=== PATIENT | female | born 1970 | race Caucasian/White ===

== ENCOUNTER → 2016-07-22 | Outpatient (REF) | payer OTHER | LOC: M SFHCLERA 15:26 | PROVIDERS: ATTEND Physician Assistant | DX: R50.9 Fever, unspecified (principal) ==

== ENCOUNTER → 2017-02-26 | Outpatient (REF) | payer OTHER | LOC: M SFHCLERA 15:09 | PROVIDERS: ATTEND Physician Assistant | DX: N30.01 Acute cystitis with hematuria (principal) ==

== ENCOUNTER → 2017-07-30 | Outpatient (CLI) | payer OTHER ==
[2017-07-30 19:01] LABS: ALBUMIN 3.8 GM/DL (3.2-5.2); ALBUMIN/GLOBULIN RATIO 1.12 (1.00-1.93); ALKALINE PHOSPHATASE 80 U/L (45-117); ALT/SGPT 17 U/L (12-78); ANION GAP 8 MEQ/L (8-16); AST/SGOT 14 U/L (7-37); BILIRUBIN,TOTAL 0.3 MG/DL (0.2-1.0); BLOOD UREA NITROGEN 10 MG/DL (7-18); CALCIUM LEVEL 8.4 MG/DL (8.5-10.1); CARBON DIOXIDE LEVEL 25 MEQ/L (21-32); CHLORIDE LEVEL 107 MEQ/L (98-107); CHOLESTEROL LEVEL 165 MG/DL (<200); CHOLESTEROL RISK RATIO 3.113 (<5); CREATININE FOR GFR 0.71 MG/DL (0.55-1.02); GLOMERULAR FILTRATION RATE > 60.0 (>58); GLUCOSE, FASTING 93 MG/DL (70-105); HDL CHOLESTEROL 53 MG/DL (>40); LDL CHOLESTEROL 89.2 MG/DL (<100); NON-HDL-C 112 MG/DL; POTASSIUM SERUM 4.3 MEQ/L (3.5-5.1); SODIUM LEVEL 140 MEQ/L (136-145); TOTAL PROTEIN 7.2 GM/DL (6.4-8.2); TRIGLYCERIDES LEVEL 114 MG/DL (<150)
[2017-08-03 00:06] LABS: Lyme Disease IgG/IgM Antibodie <0.91 ISR (0.00-0.90); Lyme Disease IgM Ab Quantitati <0.80 index (0.00-0.79)
== END ==
LOC: M WUC 08:20
DX: Z00.00 Encounter for general adult medical examination without abnormal findings (principal); Z13.220 Encounter for screening for lipoid disorders; S80.862A Insect bite (nonvenomous), left lower leg, initial encounter; X58.XXXA Exposure to other specified factors, initial encounter; Y92.9 Unspecified place or not applicable; Y93.9 Activity, unspecified

== ENCOUNTER 2017-11-22 14:33 | Emergency (ER) | payer OTHER ==
[2017-11-22 15:29] LABS: BASO % 0.4 % (0.0-1.0); EOS % 0.4 % (0.0-3.0); HEMATOCRIT 42.7 % (36.0-47.0); HEMOGLOBIN 14.1 g/dl (12.0-15.5); IMMATURE GRANULOCYTE % 0.3 % (0-3.0); LYMPH # 2.1 10^3/uL (1.5-4.5); LYMPH % 22.2 % (24.0-44.0); MEAN CORPUSCULAR HEMOGLOBIN 29.6 pg (27.0-33.0); MEAN CORPUSCULAR VOLUME 89.5 fl (80.0-96.0); MONO # 0.4 10^3/uL (0.0-0.8); MONO % 4.2 % (0.0-5.0); NEUTROPHILS # 6.8 10^3/uL (1.8-7.7); NEUTROPHILS % 72.5 % (36.0-66.0); PLATELET COUNT, AUTOMATED 328 10^3/uL (150-450); RED BLOOD COUNT 4.77 10^6/uL (4.00-5.40); WHITE BLOOD COUNT 9.5 10^3/uL (4.0-10.0)
[2017-11-22] MEDS: LORazepam 2 MG/ML VIAL (J2060) IV (15:36)
[2017-11-22] MEDS: NS 1,000 ML IV (15:37)
[2017-11-22 15:40] LABS: INR 0.89; PROTHROMBIN TIME 12.1 SECONDS (12.4-14.5)
[2017-11-22 15:41] LABS: PARTIAL THROMBOPLASTIN TIME 28.3 SECONDS (26.8-37.9)
[2017-11-22 15:44] LABS: CONTROL LINE HCG INT CTR LINE PRESENT; HCG, SERUM QUALITATIVE NEGATIVE (NEGATIVE)
[2017-11-22 15:53] LABS: ANION GAP 4 MEQ/L (8-16); BLOOD UREA NITROGEN 7 MG/DL (7-18); CALCIUM LEVEL 8.7 MG/DL (8.5-10.1); CARBON DIOXIDE LEVEL 28 MEQ/L (21-32); CHLORIDE LEVEL 109 MEQ/L (98-107); CPK CREATINE PHOSPHOKINASE 69 U/L (26-192); CREATININE FOR GFR 0.74 MG/DL (0.55-1.30); FREE T4 1.18 NG/DL (0.76-1.46); GLOMERULAR FILTRATION RATE > 60.0 (>58); GLUCOSE, FASTING 86 MG/DL (70-100); POTASSIUM SERUM 3.7 MEQ/L (3.5-5.1); SODIUM LEVEL 141 MEQ/L (136-145); TROPONIN I < 0.02 NG/ML (< 0.10)
[2017-11-22 15:57] LABS: D-DIMER QUANT < 270.0 ng/ml (<500)
[2017-11-22 15:59] LABS: CK-MB VALUE MASS < 1.0 NG/ML (<3.6); MB/CK RELATIVE INDEX 1.44 (< OR =4); NT-PRO BNP 315 PG/ML (<125)
[2017-11-22] MEDS ORDERED: ISOVUE-370 76% 100ML VIAL (Q9967) As Ordered (16:44)
[2017-11-22 20:05] LABS: ALBUMIN 3.2 GM/DL (3.2-5.2); ALBUMIN/GLOBULIN RATIO 1.07 (1.00-1.93); ALKALINE PHOSPHATASE 64 U/L (45-117); ALT/SGPT 19 U/L (12-78); AST/SGOT 14 U/L (7-37); BILIRUBIN,DIRECT 0.1 MG/DL (0.0-0.2); BILIRUBIN,TOTAL 0.4 MG/DL (0.2-1.0); CPK CREATINE PHOSPHOKINASE 56 U/L (26-192); TOTAL PROTEIN 6.2 GM/DL (6.4-8.2); TROPONIN I < 0.02 NG/ML (< 0.10)
[2017-11-22 20:06] LABS: CK-MB VALUE MASS < 1.0 NG/ML (<3.6); MB/CK RELATIVE INDEX 1.78 (< OR =4)
== END 2017-11-22 21:07 | disposition home or self-care (01) ==
LOC: M ED 14:33
DX: R07.89 Other chest pain (principal); K76.89 Other specified diseases of liver; R94.31 Abnormal electrocardiogram [ECG] [EKG]; Z79.3 Long term (current) use of hormonal contraceptives; Z86.59 Personal history of other mental and behavioral disorders
CPT/HCPCS: Q9967

== ENCOUNTER 2018-10-06 06:52 | Emergency (ER) | payer OTHER ==
[~2018-10-06] VITALS: Ht 167.6 cm; Wt 5.0 kg
[~2018-10-06 06:52] MED LIST: LEVOTAB18 PO; SERT-155 PO
[2018-10-06] MEDS ORDERED: BUPR1TAB53 PO (07:03)
[2018-10-06] MEDS: NS 1,000 ML IV ONE (07:33)
[2018-10-06 07:35] LABS: BASO % 0.4 % (0.0-1.0); EOS # 0.1 10^3/uL (0.0-0.50); EOS % 0.9 % (0.0-3.0); HEMATOCRIT 42.4 % (36.0-47.0); HEMOGLOBIN 13.8 g/dl (12.0-15.5); LYMPH # 1.4 10^3/uL (1.5-4.5); LYMPH % 14.6 % (24.0-44.0); MEAN CORPUSCULAR HEMOGLOBIN 28.8 pg (27.0-33.0); MEAN CORPUSCULAR HGB CONC 32.5 g/dl (32.0-36.5); MEAN CORPUSCULAR VOLUME 88.5 fl (80.0-96.0); MONO # 0.6 10^3/uL (0.0-0.8); NEUTROPHILS # 7.6 10^3/uL (1.8-7.7); NEUTROPHILS % 77.5 % (36.0-66.0); PLATELET COUNT, AUTOMATED 331 10^3/uL (150-450); RED BLOOD COUNT 4.79 10^6/uL (4.00-5.40); WHITE BLOOD COUNT 9.8 10^3/uL (4.0-10.0)
--- NOTE | 2018-10-06 07:48 | REP ---
Portable chest x-ray: Single view. History: Chest pain. Comparison study: November 22, 2017. Findings: EKG monitoring electrodes overlie the chest. The lungs are well inflated and clear. Heart is not enlarged. Pulmonary vasculature is not increased. No significant bony abnormality is seen. Impression: Negative portable chest x-ray. Electronically Signed by Power Caldera MD 10/06/2018 07:39 A
[2018-10-06] MEDS: ACETAMINOPHEN 500 MG TAB PO ONE (07:50)
[2018-10-06 07:58] LABS: ALBUMIN 3.7 GM/DL (3.2-5.2); ALT/SGPT 18 U/L (12-78); BILIRUBIN,DIRECT 0.1 MG/DL (0.0-0.2); BILIRUBIN,TOTAL 0.5 MG/DL (0.2-1.0); BLOOD UREA NITROGEN 6 MG/DL (7-18); CALCIUM LEVEL 8.6 MG/DL (8.5-10.1); CARBON DIOXIDE LEVEL 23 MEQ/L (21-32); CHLORIDE LEVEL 108 MEQ/L (98-107); CK-MB VALUE MASS < 1.0 NG/ML (<3.6); CPK CREATINE PHOSPHOKINASE 49 U/L (26-192); CREATININE FOR GFR 0.83 MG/DL (0.55-1.30); GLOMERULAR FILTRATION RATE > 60.0 (>58); GLUCOSE, FASTING 84 MG/DL (70-100); MB/CK RELATIVE INDEX 2.04 (< OR =4); NT-PRO BNP 123 PG/ML (<125); POTASSIUM SERUM 3.9 MEQ/L (3.5-5.1); SODIUM LEVEL 141 MEQ/L (136-145); TOTAL PROTEIN 7.3 GM/DL (6.4-8.2); TROPONIN I < 0.02 NG/ML (< 0.10)
[2018-10-06] MEDS: IPRATROPIUM 0.5MG/ALBUTEROL 2.5MG INH SOL UD 3ML (DUONEB)(J7620) NEB ONE (08:16)
[2018-10-06 08:32] LABS: INFLUENZA A AMPLIFICATION NEGATIVE (NEGATIVE); INFLUENZA B AMPLIFICATION NEGATIVE (NEGATIVE)
[2018-10-06 09:30] VITALS: BP 135/67
[2018-10-06] MEDS ORDERED: IBUP-1022 PO (09:30)
--- NOTE | 2018-10-06 19:32 | ECGEPIP ---
Stationary ECG Study [facility] - ED Test Date: 2018-10-06 Pat Name: JULIANNA GARCÍA Department: Room: - Gender: F Benefits Advisor: : [id number] Requested By: Milla Atkins Order Number: [id number] Reading MD: Milla Atkins Measurements Intervals [place] Rate: 97 P: 42 WI: 148 QRS: 16 QRSD: 92 T: 31 QT: 327 QTc: 416 Interpretive Statements SINUS RHYTHM POSSIBLE LEFT ATRIAL ENLARGEMENT DELAYED R WAVE PROGRESSION INCOMPLETE RBBB CW 11/22/17 RATE INCREASED Electronically Signed On 10-06-2018 19:32:45 EDT by Milla Atkins
== END 2018-10-06 09:45 | disposition home or self-care (01) ==
LOC: M ED 06:52
DX: R07.89 Other chest pain (principal); J06.9 Acute upper respiratory infection, unspecified; G43.909 Migraine, unspecified, not intractable, without status migrainosus; R94.31 Abnormal electrocardiogram [ECG] [EKG]; F41.9 Anxiety disorder, unspecified; Z79.3 Long term (current) use of hormonal contraceptives; Z79.899 Other long term (current) drug therapy

== ENCOUNTER → 2019-01-18 | Outpatient (REF) | payer BC ==
[~2019-01-18] MED LIST changes: +BUPR1TAB53 PO; +IBUP-1022 PO
[2019-01-23 14:07] LABS: HPV HYBRID CAPTURE II Negative (Negative)
== END ==
LOC: M LAB REF 13:27
PROVIDERS: ATTEND Physician Assistant Medical
DX: Z01.419 Encounter for gynecological examination (general) (routine) without abnormal findings (principal)
CPT/HCPCS: 87624; G0123

== ENCOUNTER → 2021-10-12 | Outpatient (REF) | payer OTHER ==
[~2021-10-12] MED LIST changes: -SERT-155 PO; +SERT50TA29 PO
== END ==
LOC: M LAB REF 16:54
PROVIDERS: ATTEND Nurse Practitioner Family
DX: N39.0 Urinary tract infection, site not specified (principal)

== ENCOUNTER → 2023-06-23 | Outpatient (REF) | payer BC ==
[2023-06-23 19:09] LABS: C REACTIVE PROTEIN QUANTITATIV 1.9 MG/DL (<1.0)
[2023-06-23 19:10] LABS: IMMUNOGLOBULIN A 161.1 MG/DL (40-350)
[2023-06-23 19:11] LABS: PERCENT SATURATION 24.1 % (13.2-45.0)
[2023-06-23 19:12] LABS: FERRITIN 76.4 NG/ML (7.3-270.7)
[2023-06-23 19:13] LABS: FOLATE 11.3 NG/ML (>5.4)
[2023-06-28 16:08] LABS: TISSUE TRANSGLUTAMINASE IgA <2 U/mL (0-3)
== END ==
LOC: M LAB REF 17:40
PROVIDERS: ATTEND Internal Medicine
DX: R19.7 Diarrhea, unspecified (principal); D64.9 Anemia, unspecified

== ENCOUNTER → 2023-06-30 | Outpatient (CLI) | payer BC | LOC: M RAD 07:23 | PROVIDERS: ATTEND Internal Medicine | DX: R10.11 Right upper quadrant pain (principal); R10.13 Epigastric pain; K76.89 Other specified diseases of liver ==

== ENCOUNTER 2023-08-04 08:25 | Emergency (ER) | payer BC ==
[~2023-08-04] VITALS: Ht 167.6 cm; Wt 92.8 kg
[2023-08-04] MEDS ORDERED: HYDR-643 PO (08:33)
[2023-08-04] MEDS ORDERED: FLUO20CA22 PO (08:33)
[2023-08-04] MEDS ORDERED: OMEP40CA5 PO (08:33)
[2023-08-04] MEDS ORDERED: VITA500T40 PO (08:33)
[2023-08-04 09:33] LABS: BASO # 0.1 10^3/uL (0.0-0.2); EOS # 0.2 10^3/uL (0.0-0.5); EOS % 2.5 % (0.0-3.0); HEMOGLOBIN 14.5 g/dl (12.0-15.5); LYMPH # 1.6 10^3/uL (1.5-5.0); LYMPH % 27.1 % (24.0-44.0); MEAN CORPUSCULAR HEMOGLOBIN 29.7 pg (27.0-33.0); MEAN CORPUSCULAR HGB CONC 33.7 g/dl (32.0-36.5); MEAN CORPUSCULAR VOLUME 88.1 fl (80.0-96.0); MONO # 0.4 10^3/uL (0.0-0.8); MONO % 6.3 % (2.0-8.0); NEUTROPHILS # 3.8 10^3/uL (1.5-8.5); NEUTROPHILS % 62.8 % (36.0-66.0); PLATELET COUNT, AUTOMATED 335 10^3/uL (150-450); RED BLOOD COUNT 4.88 10^6/uL (4.00-5.40)
[2023-08-04] MEDS ORDERED: HOME MED LIST COMPLETE! XX SCH (09:40)
[2023-08-04 09:44] LABS: PROTHROMBIN TIME 12.9 SECONDS (12.5-14.5)
[2023-08-04 09:45] LABS: PARTIAL THROMBOPLASTIN TIME 27.4 SECONDS (24.8-34.2)
[2023-08-04 09:47] LABS: D-DIMER QUANT 0.27 ug/mL (<0.5)
[2023-08-04 09:55] LABS: BLOOD UREA NITROGEN 8 MG/DL (9-23); CALCIUM LEVEL 8.8 MG/DL (8.5-10.1); CARBON DIOXIDE LEVEL 25 MMOL/L (20-31); CHLORIDE LEVEL 107 MMOL/L (98-107); CK-MB VALUE MASS < 1.0 NG/ML (<3.6); CPK CREATINE PHOSPHOKINASE 57 U/L (34-145); CREATININE FOR GFR 0.68 MG/DL (0.55-1.30); GLOMERULAR FILTRATION RATE > 60.0 (>51); GLUCOSE, FASTING 91 MG/DL (60-100); MB/CK RELATIVE INDEX 1.75 (< OR =4); POTASSIUM SERUM 4.1 MMOL/L (3.5-5.1); SODIUM LEVEL 136 MMOL/L (136-145)
[2023-08-04] MEDS ORDERED: KETOROLAC 30 MG/ML 1ML VIAL IV ONE (10:30)
[2023-08-04] MEDS ORDERED: NAPR-837 PO (11:28)
[2023-08-04 11:33] VITALS: BP 126/65; TEMP 97.5; O2SAT 98
== END 2023-08-04 11:39 | disposition home or self-care (01) ==
LOC: M ED 08:25
DX: M94.0 Chondrocostal junction syndrome [Tietze] (principal); R94.31 Abnormal electrocardiogram [ECG] [EKG]; K21.9 Gastro-esophageal reflux disease without esophagitis; F41.9 Anxiety disorder, unspecified; Z79.899 Other long term (current) drug therapy
CPT/HCPCS: 71045; 80048; 82550; 82553; 85025; 85379; 85610; 85730; 93005; 96374; 99284; J1885

== ENCOUNTER → 2023-08-29 | Outpatient (REF) | payer BC ==
[~2023-08-29] MED LIST changes: +FLUO20CA22 PO; +HYDR-643 PO; +KURV0.15 PO; +NAPR-837 PO; +OMEP40CA5 PO; +VITA500T40 PO
== END ==
LOC: M SFHCWAGY 16:48
PROVIDERS: ATTEND Nurse Practitioner Family
DX: R87.615 Unsatisfactory cytologic smear of cervix (principal); N94.10 Unspecified dyspareunia; Z12.4 Encounter for screening for malignant neoplasm of cervix

== ENCOUNTER 2023-09-19 09:16 | Day surgery (SDC) | payer BC ==
[~2023-09-19] VITALS: Ht 170.2 cm; Wt 90.4 kg
[2023-09-19] MEDS: NS 1,000 ML IV ONE (09:30)
[2023-09-19 11:17] VITALS: TEMP 98.6
[2023-09-19] MEDS ORDERED: propofoL 200 MG/20 ML VIAL As Ordered ONE (11:24)
[2023-09-19 11:40] VITALS: BP 138/73; O2SAT 98
== END 2023-09-19 11:50 | disposition home or self-care (01) ==
LOC: M OPP 09:16
PROVIDERS: ATTEND Internal Medicine Gastroenterology
DX: Z12.11 Encounter for screening for malignant neoplasm of colon (principal); K64.0 First degree hemorrhoids; K57.30 Diverticulosis of large intestine without perforation or abscess without bleeding; R12 Heartburn; Z79.899 Other long term (current) drug therapy

== ENCOUNTER → 2024-08-13 | Outpatient (REF) | payer BC ==
[~2024-08-13] MED LIST changes: +FLUO-365 PO; -FLUO20CA22 PO
[2024-08-13 15:52] LABS: PERCENT SATURATION 14.7 % (13.2-45.0)
[2024-08-13 15:55] LABS: FERRITIN 51.3 NG/ML (7.3-270.7)
== END ==
LOC: M LAB REF 12:25
PROVIDERS: ATTEND Internal Medicine
DX: D64.9 Anemia, unspecified (principal)

== ENCOUNTER → 2024-10-05 | Outpatient (REF) | payer BC | LOC: M SFHCWAGY 16:48 | PROVIDERS: ATTEND Advanced Practice Midwife | DX: R87.615 Unsatisfactory cytologic smear of cervix (principal) ==

== ENCOUNTER 2024-10-10 10:17 | Emergency (ER) | payer BC ==
[~2024-10-10] VITALS: Ht 170.2 cm; Wt 84.6 kg
[2024-10-10 10:25] VITALS: BP 137/65; TEMP 97.6; O2SAT 98
[2024-10-10 11:38] LABS: BASO # 0.1 10^3/uL (0.0-0.2); BASO % 0.7 % (0.0-1.0); EOS # 0.1 10^3/uL (0.0-0.5); EOS % 0.8 % (0.0-3.0); HEMATOCRIT 43.9 % (36.0-47.0); HEMOGLOBIN 14.4 g/dl (12.0-15.5); LYMPH # 1.9 10^3/uL (1.5-5.0); LYMPH % 24.8 % (24.0-44.0); MEAN CORPUSCULAR HEMOGLOBIN 29.4 pg (27.0-33.0); MEAN CORPUSCULAR HGB CONC 32.8 g/dl (32.0-36.5); MEAN CORPUSCULAR VOLUME 89.8 fl (80.0-96.0); MONO # 0.4 10^3/uL (0.0-0.8); MONO % 5.3 % (2.0-8.0); NEUTROPHILS # 5.2 10^3/uL (1.5-8.5); NEUTROPHILS % 67.9 % (36.0-66.0); PLATELET COUNT, AUTOMATED 363 10^3/uL (150-450); RED BLOOD COUNT 4.89 10^6/uL (4.00-5.40); WHITE BLOOD COUNT 7.6 10^3/uL (4.0-10.0)
[2024-10-10 12:02] LABS: LIPASE 43 U/L (12-53)
[2024-10-10 12:04] LABS: ALBUMIN 3.8 G/DL (3.2-5.2); ALKALINE PHOSPHATASE 82 U/L (35-104); ALT/SGPT 19 U/L (7.0-40); AST/SGOT 13 U/L (<34); BILIRUBIN,DIRECT 0.1 MG/DL (<0.4); BILIRUBIN,TOTAL 0.5 MG/DL (0.3-1.2); BLOOD UREA NITROGEN 9 MG/DL (9-23); CALCIUM LEVEL 8.7 MG/DL (8.5-10.1); CARBON DIOXIDE LEVEL 26 MMOL/L (20-31); CHLORIDE LEVEL 103 MMOL/L (98-107); CREATININE FOR GFR 0.67 MG/DL (0.55-1.30); GLOMERULAR FILTRATION RATE > 60.0 (>51); GLUCOSE, FASTING 87 MG/DL (60-100); POTASSIUM SERUM 4.1 MMOL/L (3.5-5.1); SODIUM LEVEL 137 MMOL/L (136-145); TOTAL PROTEIN 7.2 G/DL (5.7-8.2)
[2024-10-10 14:38] LABS: KETONE, URINE AUTO RFX NEGATIVE (NEGATIVE); MUCUS, URINE RFX SMALL (NEGATIVE); NITRITE, URINE AUTO RFX NEGATIVE (NEGATIVE); RBC, URINE AUTO RFX 6 /HPF (0-3); SQUAM EPITHELIAL CELL UR AURFX 8 /HPF (0-6)
[2024-10-10 14:39] LABS: LEUKOCYTE ESTERASE UR AUTO RFX 3+ (NEGATIVE); WBC, URINE AUTO RFX 18 /HPF (0-3)
== END 2024-10-10 14:32 | disposition left against medical advice (07) ==
LOC: M ED 10:17
DX: R10.31 Right lower quadrant pain (principal); Z53.9 Procedure and treatment not carried out, unspecified reason; K21.9 Gastro-esophageal reflux disease without esophagitis; Z79.3 Long term (current) use of hormonal contraceptives; Z79.899 Other long term (current) drug therapy